=== PATIENT | male | born 1980 | race Caucasian/White ===

== ENCOUNTER 2018-08-22 14:07 | Day surgery (SDC) | payer OTHER ==
[2018-08-21 15:30] VITALS: BMI 28.0
[~2018-08-22] VITALS: Ht 175.3 cm; Wt 88.8 kg
[2018-08-22] VITALS (13 sets, daily range): BP systolic 104–142; BP diastolic 58–85; PULSE 52–79; RESP 14–19; Ht 175.3 cm; Wt 88.8 kg
[~2018-08-22 14:07] MED LIST: CEFAZOLIN 1 GM INJ ONE; DESFLURANE 15 MIN ONE; DEXAMETHASONE 4 MG/ML 5 ML INJ ONE; PROPOFOL 200 MG INJ ONE; ROCURONIUM BROMIDE 10 MG/ML VIAL ONE
[2018-08-22] MEDS ORDERED: LACTATED RINGER'S 1,000 ML IV SCH (15:00)
--- NOTE | 2018-08-22 16:30 | PREAC ---
ORLY FISHER MD 08/22/18 1630: Date/Time of Note Date/Time of Note DATE: 08/22/18 TIME: 16:29 Anesthesia Eval and Record Evaluation Time Pre-Procedure Interview DATE: 08/22/18 TIME: 16:29 Age 38 Sex male NPO: 8 hrs Preoperative diagnosis Recurrent tonsillitis Planned procedure Tonsillectomy Past Medical History Past Medical History: Includes Surgery & Anesthesia Issues No known issue Meds Anticoagulation: No Beta Naye within 24 hr: No No Active Prescriptions or Reported Meds Current Medications Lactated Ringer's 1,000 ml @ 25 mls/hr Q24H IV Last administered on 08/22/18at 15:15; Admin Dose 25 MLS/HR; Start 08/22/18 at 15:00 Meds reviewed: Yes Allergies Coded Allergies: No Known Allergy (Unverified , 08/21/18) Allergies Reviewed: Yes Labs/Studies Labs Reviewed: Reviewed by anesthesiologist test: N/A Pre-procedure Exam Last vitals Vital Signs Date Temp Pulse Resp B/P (MAP) Pulse Ox O2 O2 Flow FiO2 Time Delivery Rate 08/22/18 98.6 71 16 111/58 97 Room Air 15:01 (75) Airway: Adequate mouth opening Mallampati: Mallampati I Teeth: Normal Lung: Normal Heart: Normal ASA Physical Status ASA physical status: 2 Emergency: None Planned Anesthetic General/MAC: ETT Planned Pain Management Parenteral pain med Pre-operative Attestations Prior to commencing anesthesia and surgery, the patient was re-evaluated, there was verification of: *The patient's identity *The results of appropriate recent lab work and preoperative vital signs *The above evaluation not changing prior to induction *Anesthetic plan, risk benefits, alternative and complications discussed with patient/family; questions answered; patient/family understands, accepts and wishes to proceed. CHANTEL MORLEY DO 08/22/18 1658: Anesthesia Eval and Record Meds No Active Prescriptions or Reported Meds Allergies Coded Allergies: No Known Allergy (Unverified , 08/21/18) ORLY FISHER MD Aug 22, 2018 16:30 CHANTEL MORLEY DO Aug 22, 2018 16:58
--- NOTE | 2018-08-22 16:52 | HPN ---
Date/Time of Note Date/Time of Note DATE: 08/22/18 TIME: 16:51 Interval H&P Admission Note Pt. seen H&P reviewed: No system changes LIZZETTE HUTSON MD Aug 22, 2018 16:52
[2018-08-22] MEDS ORDERED: MEPERIDINE 25 MG INJ IV PRN (17:00)
[2018-08-22] MEDS ORDERED: HYDROmorphONE 1 MG/5 ML IV SYRINGE IV PRN ×3 (17:00)
[2018-08-22] MEDS ORDERED: DIPHENHYDRAMINE 50 MG INJ IV PRN (17:00)
[2018-08-22] MEDS ORDERED: MIDAZOLAM 1 MG/ML 2 ML INJ ONE (17:29)
[2018-08-22] MEDS ORDERED: LIDOCAINE 1% (MDV) 20 ML INJ ONE (17:29)
[2018-08-22] MEDS ORDERED: SUGAMMADEX SODIUM 200 MG/2 ML VIAL IV ONE (17:55)
[2018-08-22] MEDS ORDERED: OXYCODONE/ACETAMINOPHEN (5/325) TAB PO PRN (18:00)
[2018-08-22] MEDS ORDERED: ONDANSETRON 4 MG INJ IV PRN (18:00)
--- NOTE | 2018-08-22 18:00 | OPR ---
Date/Time of Note Date/Time of Note DATE: 08/22/18 TIME: 17:59 Operative Report Procedure Date: Aug 22, 2018 Preoperative Diagnosis Chronic tonsillitis Postoperative Diagnosis Same Operation/Procedure Performed Tonsillectomy Surgeon see signature line [employer] None Anesthesia Type: general Estimated Blood Loss: 10 - 50 ml's Transfusion none Specimen Tonsils Grafts/Implants none Complications none Pt Condition Post Procedure: stable Disposition: PACU Indications Recurrent infection, hypertrophy Procedure Description Description of procedure: The patient was identified in the holding area. We had a discussion to confirm understanding of all indications risks benefits alternatives and postoperative care associated with the operation. The patient signed informed consent was taken to the operating room. The patient was laid supine on the operating room table and general anesthesia was achieved without difficulty. The face was draped in sterile fashion. A McIvor mouth gag was placed and used to retract the oral cavity open, taking care to avoid damage to the teeth. The oral cavity and pharynx were inspected and palpated to reveal symmetric 3 plus tonsils. At this point the right palatine tonsil was grabbed superiorly with a curved Negrita clamp. It was retracted medially and monopolar cautery was used to enter the peritonsillar space. Dissection of the tonsil commenced in a superior to inferior fashion until it was completely resected. Suction Bovie cautery was used for spot hemostasis. At this point, the contralateral tonsil was removed in the exact similar fashion. There was no significant bleeding or oozing. Copious irrigation and suctioning was performed. Secondary inspection revealed no bleeding or oozing. The patient was awakened, extubated and taken to the PACU in stable condition. Complications: None LIZZETTE HUTSON MD Aug 22, 2018 18:00
--- NOTE | 2018-08-22 18:38 | PAC ---
Date/Time of Note Date/Time of Note DATE: 08/22/18 TIME: 18:37 Post-Anesthesia Notes Post-Anesthesia Note Last documented vital signs Vital Signs Date Temp Pulse Resp B/P (MAP) Pulse Ox O2 O2 Flow FiO2 Time Delivery Rate 08/22/18 98.6 71 16 111/58 97 Room Air 15:01 (75) Activity: WNL Respiratory function: WNL Cardiovascular function: WNL Mental status: Baseline Pain reasonably controlled: Yes Hydration appropriate: Yes Nausea/Vomiting absent: Yes CHANTEL MORLEY DO Aug 22, 2018 18:38
== END 2018-08-22 20:00 | disposition home or self-care (01) ==
LOC: SDS 14:07
PROVIDERS: ATTEND Otolaryngology
DX: J35.01 Chronic tonsillitis (principal)
CPT/HCPCS: 42826; 88304; J0690; J1100; J1170; J2175; J2250; J2405; J3010